=== PATIENT | male | born 1955 | race Caucasian/White ===

== ENCOUNTER → 2017-06-30 10:22 | Outpatient (CLI) | payer OTHER, SELFPAY ==
--- NOTE | 2017-06-30 | DI.CT.S_ITS ---
PROCEDURE: CT SINUS SCREEN WO CON INDICATIONS: ACUTE SINUSITIS TECHNIQUE: Noncontrast 3.0 mm axial images acquired from the frontal sinuses to the mid-sella, with coronal and sagittal reformats. For radiation dose reduction, the following was used: automated exposure control, adjustment of mA and/or kV according to patient size. COMPARISON: None. FINDINGS: Image quality: Excellent. Maxillary Sinuses: Bilateral maxillary windowing and partial ethmoidectomy, right greater than left. The right maxillary sinus is clear. There is minimal 5 mm thick mucous membrane thickening in the anterior floor of the left maxillary sinus which is otherwise clear. Ethmoid Air Cells: No bony remodeling or destruction. Sinuses are clear. Sphenoid Sinuses: No bony remodeling or destruction. Sinuses are clear. Frontal Sinuses: No bony remodeling or destruction. Sinuses are clear. Ostiomeatal Complexes: Ostiomeatal complexes are patent. No Angelito cells. Miscellaneous: Visualized intra-orbital contents are normal. Left denice bullosa, no paradoxical turbinate curvature. No nasal septal deviation. There is water attenuation within the mastoid air cells, right greater than left. IMPRESSION: 1. No evidence of acute sinusitis. 2. Minimal chronic mucous membrane thickening anterior floor of the right maxillary sinus. 3. Evidence of previous sinus surgery as described. 4. Left denice bullosa. 5. Possible mastoiditis, right greater than left. Correlate clinically. Dictated by: Milton Molina M.D. on 06/30/2017 at 10:45 Approved by: Milton Molina M.D. on 06/30/2017 at 11:02
== END ==
PROVIDERS: Family Provider Internal Medicine; PCP Internal Medicine; Visit Provider Otolaryngology
DX: J01.90 Acute sinusitis, unspecified (principal); J34.89 Other specified disorders of nose and nasal sinuses
CPT/HCPCS: 70486

== ENCOUNTER → 2017-07-21 08:47 | Outpatient (CLI) | payer OTHER, SELFPAY ==
[2017-07-21 10:05] LABS: Add Manual Diff / Slide Review NO; Basophils Percent Auto 0.7 % (0-2); Eosinophils Percent Auto 1.4 % (2-4); Hematocrit 41.6 % (41-53); Hemoglobin 14.2 g/dL (13.5-17.5); Lymphocytes Percent Auto 18.8 % (25-40); Mean Corpuscular Volume 82.2 fL (80-100); Monocytes Percent Auto 5.6 % (3-14); Neutrophils Absolute Auto 5400 /uL (3000-5900); Neutrophils Percent Auto 73.5 % (50-75); Platelet Count 188 X10^3/uL (150-400); Red Blood Cell Count 5.06 X10^6/uL (4.5-5.9); Red Cell Distribution Width 14.8 % (11.6-14.8); White Blood Cell Count 7.4 X10^3/uL (4.5-11.0)
[2017-07-21 10:18] LABS: Erythrocyte Sedimentation Rate 10 MM/HR (0-15)
[2017-07-21 10:45] LABS: Alanine Aminotransferase 30 IU/L (21-72); Albumin 4.1 g/dL (3.5-5.0); Albumin Globulin Ratio 1.4 (1.0-2.8); Alkaline Phosphatase 68 U/L (38-126); Aspartate Aminotransferase 28 IU/L (17-59); Bilirubin Total 0.6 mg/dL (0.2-1.3); Blood Urea Nitrogen 16 mg/dL (9-20); Calcium 9.3 mg/dL (8.4-10.2); Carbon Dioxide 31 mmol/L (22-32); Chloride 101 mmol/L (98-107); Estimated Glomerular Filt Rate > 60.0 mL/min (>60); Glucose 105 mg/dL (80-110); HEMOLYSIS < 15 (0-50); Potassium 4.1 mmol/L (3.4-5.1); Sodium 142 mmol/L (137-145); Total Protein 7.1 g/dL (6.3-8.2); Uric Acid 5.5 mg/dL (3.5-8.5)
[2017-07-21 10:48] LABS: C-Reactive Protein Quant < 0.5 mg/dL (<1.0)
== END ==
PROVIDERS: PCP Internal Medicine; Visit Provider Specialist/Technologist Athletic Trainer
DX: M12.9 Arthropathy, unspecified (principal)
CPT/HCPCS: 36415; 80053; 84550; 85025; 85651; 86140

== ENCOUNTER → 2017-09-01 07:52 | Outpatient (CLI) | payer OTHER, SELFPAY ==
[2017-09-01 08:42] LABS: Add Manual Diff / Slide Review NO; Basophils Percent Auto 0.9 % (0-2); Eosinophils Percent Auto 1.4 % (2-4); Hematocrit 41.3 % (41-53); Hemoglobin 13.9 g/dL (13.5-17.5); Lymphocytes Percent Auto 37.1 % (25-40); Mean Corpuscular HGB Conc 33.5 % (30-36); Mean Corpuscular Hemoglobin 28.6 PG (26-34); Mean Corpuscular Volume 85.4 fL (80-100); Monocytes Percent Auto 8.2 % (3-14); Neutrophils Absolute Auto 4200 /uL (3000-5900); Neutrophils Percent Auto 52.4 % (50-75); Platelet Count 178 X10^3/uL (150-400); Red Blood Cell Count 4.84 X10^6/uL (4.5-5.9); Red Cell Distribution Width 14.9 % (11.6-14.8); White Blood Cell Count 7.9 X10^3/uL (4.5-11.0)
[2017-09-01 09:02] LABS: Erythrocyte Sedimentation Rate 6 MM/HR (0-15)
[2017-09-01 09:14] LABS: Alanine Aminotransferase 30 IU/L (21-72); Albumin 3.9 g/dL (3.5-5.0); Albumin Globulin Ratio 1.4 (1.0-2.8); Alkaline Phosphatase 63 U/L (38-126); Aspartate Aminotransferase 28 IU/L (17-59); Bilirubin Total 0.6 mg/dL (0.2-1.3); Blood Urea Nitrogen 18 mg/dL (9-20); C-Reactive Protein Quant < 0.5 mg/dL (<1.0); Calcium 9.2 mg/dL (8.4-10.2); Carbon Dioxide 32 mmol/L (22-32); Chloride 105 mmol/L (98-107); Cholesterol 146 mg/dL (140-199); Estimated Glomerular Filt Rate > 60.0 mL/min (>60); Globulin 2.7 g/dL (1.7-4.1); Glucose 90 mg/dL (80-110); HDL Cholesterol 50 mg/dL (40-60); HEMOLYSIS < 15 (0-50); LDL Cholesterol Calculated 63 mg/dL (<100); Potassium 4.1 mmol/L (3.4-5.1); Sodium 143 mmol/L (137-145); Total Protein 6.6 g/dL (6.3-8.2); Triglycerides 165 mg/dL (35-150)
== END ==
PROVIDERS: PCP Internal Medicine; Visit Provider Specialist/Technologist Athletic Trainer
DX: M1A.09X0 Idiopathic chronic gout, multiple sites, without tophus (tophi) (principal); E78.5 Hyperlipidemia, unspecified
CPT/HCPCS: 36415; 80053; 80061; 84550; 85025; 85651; 86140

== ENCOUNTER → 2017-11-21 11:37 | Outpatient (CLI) | payer OTHER, SELFPAY ==
--- NOTE | 2017-11-21 11:39 | DI.RAD.S_ITS ---
PROCEDURE: XR CHEST 2V INDICATIONS: dyspnea TECHNIQUE: 2 views of the chest were acquired. COMPARISON: [facility], , CHEST 2 VIEW, 06/18/2012, 12:28. FINDINGS: Surgical changes and devices: None. Lungs and pleura: No pleural effusions or pneumothorax. Lungs are clear. Mediastinum: Mediastinal contours are normal. Heart size is normal. Bones and chest wall: No suspicious bony abnormalities. Soft tissues appear unremarkable. IMPRESSION: No acute cardiopulmonary pathology. Dictated by: Eddie Monte M.D. on 11/21/2017 at 12:32 Approved by: Eddie Monte M.D. on 11/21/2017 at 12:33
== END ==
PROVIDERS: Family Provider Internal Medicine; PCP Internal Medicine; Visit Provider Internal Medicine
DX: R06.00 Dyspnea, unspecified (principal)
CPT/HCPCS: 71046

== ENCOUNTER → 2017-12-09 11:33 | Outpatient (CLI) | payer OTHER, SELFPAY ==
--- NOTE | 2017-12-12 15:51 | PM.PFT.1 ---
Pulmonary Function Test Referral & Results Date Patient Seen: 12/09/17 Requesting provider: Ramesh Grande Indication: Dyspnea Results: The spirometry demonstrates an FVC of 4.24 L which is 98% of predicted. The FEV1 was measured at 3.64 L which is 112% of predicted. The FEV1/FVC ratio was 86 which is 114% of predicted. Following the administration of bronchodilator there was no appreciable change in above normal numbers. Lung volumes show an SVC of 3.77 L which is 85% of predicted. The diffusing capacity was measured at 27.8 for which is 93% of predicted. The maximum voluntary ventilation was normal Interpretation: This study demonstrates normal pulmonary function
== END ==
PROVIDERS: Family Provider Internal Medicine; PCP Internal Medicine; Visit Provider Internal Medicine
DX: R06.09 Other forms of dyspnea (principal)
CPT/HCPCS: 94010; 94060; 94726; 94729

== ENCOUNTER → 2018-10-20 07:58 | Outpatient (CLI) | payer OTHER, SELFPAY ==
[2018-10-20 09:06] LABS: Alanine Aminotransferase 15 IU/L (21-72); Albumin Globulin Ratio 1.3 (1.0-2.8); Alkaline Phosphatase 99 U/L (38-126); Aspartate Aminotransferase 24 IU/L (17-59); Bilirubin Total 0.4 mg/dL (0.2-1.3); Blood Urea Nitrogen 18 mg/dL (9-20); Calcium 9.4 mg/dL (8.4-10.2); Carbon Dioxide 31 mmol/L (22-32); Chloride 104 mmol/L (98-107); Cholesterol 251 mg/dL (140-199); Estimated Glomerular Filt Rate > 60.0 mL/min (>60); Globulin 3.2 g/dL (1.7-4.1); Glucose 98 mg/dL (80-110); HDL Cholesterol 40 mg/dL (40-60); HEMOLYSIS < 15 (0-50); LDL Cholesterol Calculated 163 mg/dL (<100); Potassium 4.4 mmol/L (3.4-5.1); Sodium 140 mmol/L (137-145); Total Protein 7.2 g/dL (6.3-8.2); Triglycerides 240 mg/dL (35-150)
== END ==
PROVIDERS: PCP Internal Medicine; Visit Provider Internal Medicine
DX: M10.9 Gout, unspecified (principal); E78.5 Hyperlipidemia, unspecified; I10 Essential (primary) hypertension
CPT/HCPCS: 36415; 80053; 80061; 84550

== ENCOUNTER → 2020-03-03 12:05 | Outpatient (CLI) | payer MEDICARE, OTHER, SELFPAY ==
[2020-03-03 13:07] LABS: Add Manual Diff / Slide Review NO; Basophils Absolute Auto 100 /uL (0-100); Basophils Percent Auto 0.9 % (0-2); Eosinophils Absolute Auto 200 /uL (0-450); Eosinophils Percent Auto 2.8 % (2-4); Hematocrit 41.4 % (41-53); Hemoglobin 13.7 g/dL (13.5-17.5); Lymphocytes Absolute Auto 2200 /uL (1100-4500); Mean Corpuscular Hemoglobin 27.9 PG (26-34); Mean Corpuscular Volume 84.6 fL (80-100); Monocytes Absolute Auto 500 /uL (0-900); Monocytes Percent Auto 7.5 % (3-14); Neutrophils Absolute Auto 4100 /uL (1500-7000); Neutrophils Percent Auto 57.8 % (50-75); Platelet Count 211 X10^3/uL (150-400); Red Cell Distribution Width 14.9 % (11.6-14.8); White Blood Cell Count 7.1 X10^3/uL (4.5-11.0)
[2020-03-03 13:40] LABS: Alanine Aminotransferase 21 IU/L (<50); Albumin Globulin Ratio 1.3 (1.0-2.8); Alkaline Phosphatase 95 U/L (38-126); Aspartate Aminotransferase 33 IU/L (17-59); BUN Creatinine Ratio 17.4 (6-22); Bilirubin Total 0.3 mg/dL (0.2-1.3); Blood Urea Nitrogen 16 mg/dL (9-20); Calcium 9.1 mg/dL (8.4-10.2); Carbon Dioxide 31 mmol/L (22-32); Chloride 104 mmol/L (98-107); Estimated Glomerular Filt Rate > 60.0 mL/min (>60); Globulin 3.2 g/dL (1.7-4.1); Glucose 110 mg/dL (80-110); HEMOLYSIS < 15 (0-50); Potassium 4.8 mmol/L (3.4-5.1); Sodium 139 mmol/L (137-145); Total Protein 7.2 g/dL (6.3-8.2); Uric Acid 4.6 mg/dL (3.5-8.5)
[2020-03-03 14:09] LABS: Prostate Specific Antigen Scrn 0.782 ng/mL (0.1-4.0)
== END ==
PROVIDERS: PCP Internal Medicine; Referring Provider Internal Medicine; Visit Provider Internal Medicine
DX: E78.5 Hyperlipidemia, unspecified (principal); Z12.5 Encounter for screening for malignant neoplasm of prostate; E79.0 Hyperuricemia without signs of inflammatory arthritis and tophaceous disease; I10 Essential (primary) hypertension; M10.9 Gout, unspecified
CPT/HCPCS: 36415; 80053; 84550; 85025; G0103

== ENCOUNTER → 2020-03-14 07:47 | Outpatient (CLI) | payer MEDICARE, OTHER, SELFPAY ==
[2020-03-14] MEDS: COVID-19 VACC #1, MRNA(MOD) 100 MCG/0.5 ML VIAL IM (07:54)
== END ==
PROVIDERS: PCP Internal Medicine; Visit Provider Internal Medicine
DX: Z23 Encounter for immunization (principal)
CPT/HCPCS: 0011A; 91301

== ENCOUNTER → 2020-04-11 07:50 | Outpatient (CLI) | payer MEDICARE, OTHER, SELFPAY ==
[2020-04-11] MEDS: COVID-19 VACC #2, MRNA(MOD) 100 MCG/0.5 ML VIAL IM (08:05)
== END ==
PROVIDERS: PCP Internal Medicine; Visit Provider Internal Medicine
DX: Z23 Encounter for immunization (principal)
CPT/HCPCS: 0012A; 91301

== ENCOUNTER → 2020-11-14 15:17 | Outpatient (CLI) | payer MEDICARE, OTHER, SELFPAY ==
[2020-11-14 17:29] LABS: Alanine Aminotransferase 19 IU/L (<50); Albumin Globulin Ratio 1.3 (1.0-2.8); Alkaline Phosphatase 98 U/L (38-126); Aspartate Aminotransferase 29 IU/L (17-59); BUN Creatinine Ratio 20.2 (6-22); Bilirubin Total 0.3 mg/dL (0.2-1.3); Blood Urea Nitrogen 18 mg/dL (9-20); Carbon Dioxide 31 mmol/L (22-32); Chloride 104 mmol/L (98-107); Estimated Glomerular Filt Rate > 60.0 mL/min (>60); Glucose 107 mg/dL (80-110); HEMOLYSIS < 15 (0-50); Sodium 140 mmol/L (137-145); Uric Acid 4.7 mg/dL (3.5-8.5)
== END ==
PROVIDERS: PCP Internal Medicine; Referring Provider Physician Assistant Medical; Visit Provider Physician Assistant Medical
DX: M1A.09X0 Idiopathic chronic gout, multiple sites, without tophus (tophi) (principal)
CPT/HCPCS: 36415; 80053; 84550

== ENCOUNTER → 2021-03-09 08:26 | Outpatient (CLI) | payer MEDICARE, OTHER, SELFPAY ==
[2021-03-09 09:31] LABS: Add Manual Diff / Slide Review NO; Basophils Absolute Auto 100 /uL (0-100); Basophils Percent Auto 0.8 % (0-2); Eosinophils Absolute Auto 200 /uL (0-450); Eosinophils Percent Auto 2.6 % (2-4); Hematocrit 40.9 % (41-53); Hemoglobin 13.8 g/dL (13.5-17.5); Lymphocytes Absolute Auto 2100 /uL (1100-4500); Lymphocytes Percent Auto 31.4 % (25-40); Mean Corpuscular HGB Conc 33.7 % (30-36); Mean Corpuscular Hemoglobin 28.1 PG (26-34); Mean Corpuscular Volume 83.3 fL (80-100); Monocytes Absolute Auto 500 /uL (0-900); Monocytes Percent Auto 7.6 % (3-14); Neutrophils Absolute Auto 3900 /uL (1500-7000); Neutrophils Percent Auto 57.6 % (50-75); Platelet Count 203 X10^3/uL (150-400); Red Blood Cell Count 4.91 X10^6/uL (4.5-5.9); Red Cell Distribution Width 14.3 % (11.6-14.8); White Blood Cell Count 6.7 X10^3/uL (4.5-11.0)
[2021-03-09 10:12] LABS: Alanine Aminotransferase 19 IU/L (<50); Albumin Globulin Ratio 1.4 (1.0-2.8); Alkaline Phosphatase 87 U/L (38-126); Aspartate Aminotransferase 29 IU/L (17-59); BUN Creatinine Ratio 16.3 (6-22); Bilirubin Total 0.4 mg/dL (0.2-1.3); Blood Urea Nitrogen 15 mg/dL (9-20); Calcium 9.1 mg/dL (8.4-10.2); Carbon Dioxide 30 mmol/L (22-32); Chloride 105 mmol/L (98-107); Cholesterol 256 mg/dL (140-199); Estimated Glomerular Filt Rate > 60.0 mL/min (>60); Globulin 2.8 g/dL (1.7-4.1); Glucose 104 mg/dL (80-110); HDL Cholesterol 41 mg/dL (40-60); HEMOLYSIS < 15 (0-50); LDL Cholesterol Calculated 173 mg/dL (<100); Potassium 4.4 mmol/L (3.4-5.1); Sodium 140 mmol/L (137-145); Total Protein 6.8 g/dL (6.3-8.2); Triglycerides 211 mg/dL (35-150); Uric Acid 5.1 mg/dL (3.5-8.5)
[2021-03-09 10:33] LABS: Prostate Specific Antigen Scrn 0.629 ng/mL (0.1-4.0)
== END ==
PROVIDERS: PCP Internal Medicine; Referring Provider Internal Medicine; Visit Provider Internal Medicine
DX: E78.2 Mixed hyperlipidemia (principal); Z12.5 Encounter for screening for malignant neoplasm of prostate; C84.A0 Cutaneous T-cell lymphoma, unspecified, unspecified site; E79.0 Hyperuricemia without signs of inflammatory arthritis and tophaceous disease; I10 Essential (primary) hypertension
CPT/HCPCS: 36415; 80053; 80061; 84550; 85025; G0103

== ENCOUNTER → 2021-10-08 07:15 | Outpatient (CLI) | payer MEDICARE, OTHER, SELFPAY ==
[2021-10-08 09:05] LABS: Alanine Aminotransferase 17 IU/L (<50); Albumin 3.8 g/dL (3.5-5.0); Albumin Globulin Ratio 1.2 (1.0-2.8); Alkaline Phosphatase 89 U/L (38-126); Aspartate Aminotransferase 25 IU/L (17-59); BUN Creatinine Ratio 15.3 (6-22); Bilirubin Total 0.5 mg/dL (0.2-1.3); Blood Urea Nitrogen 15 mg/dL (9-20); Calcium 8.9 mg/dL (8.4-10.2); Carbon Dioxide 29 mmol/L (22-32); Chloride 106 mmol/L (98-107); Estimated Glomerular Filt Rate > 60 mL/min (>60); Globulin 3.1 g/dL (1.7-4.1); Glucose 97 mg/dL (80-110); HEMOLYSIS < 15 (0-50); Potassium 4.3 mmol/L (3.4-5.1); Sodium 140 mmol/L (137-145); Total Protein 6.9 g/dL (6.3-8.2)
== END ==
PROVIDERS: PCP Internal Medicine; Referring Provider Internal Medicine; Visit Provider Internal Medicine
DX: I10 Essential (primary) hypertension (principal)
CPT/HCPCS: 36415; 80053

== ENCOUNTER 2022-12-17 13:39 | Emergency (ER) | payer MEDICARE, OTHER, SELFPAY ==
[2022-12-17] VITALS (7 sets, daily range): BP systolic 160–198; BP diastolic 72–87; PULSE 55–71; RESP 16–24; TEMP 36.6; O2SAT 98–99; BMI 39.9
--- NOTE | 2022-12-17 13:59 | DI.CT.S_ITS ---
PROCEDURE: CT STROKE INDICATIONS: Positive BE-FAST, Stroke symptoms TECHNIQUE: Noncontrast 4.5 mm thick angled axial sections acquired from the foramen magnum to the vertex, with coronal reformats. For radiation dose reduction, the following was used: automated exposure control, adjustment of mA and/or kV according to patient size. COMPARISON: None. FINDINGS: Image quality: Excellent. CSF spaces: Basal cisterns are patent. No extra-axial fluid collections. Ventricles are normal in size and shape. Brain: No midline shift. No intracranial masses or hemorrhage. Mild age-related global volume loss. Bills-white matter interface is normal. Skull and face: Calvarium and visualized facial bones are intact, without suspicious lesions. Sinuses: Visualized sinuses and mastoids are clear. IMPRESSION: No acute intracranial abnormalities. This study fulfills neurological imaging criteria for inclusion or exclusion of acute stroke therapies based on available published neurological imaging guidelines. Dictated by: Matteo Cheng M.D. on 12/17/2022 at 14:35 Approved by: Matteo Cheng M.D. on 12/17/2022 at 14:36
--- NOTE | 2022-12-17 13:59 | DI.RAD.S_ITS ---
PROCEDURE: XR CHEST 1V INDICATIONS: Possible stroke TECHNIQUE: One view of the chest was acquired. COMPARISON: [facility], , XR CHEST 2V, 11/21/2017, 11:42. [facility], , CHEST 2 VIEW, 06/18/2012, 12:28. FINDINGS: Surgical changes and devices: None. Lungs and pleura: Lungs are clear. No pleural effusions or pneumothorax. Mediastinum: Mediastinal contours appear normal. Heart size is normal. Bones and chest wall: No suspicious bony lesions. Overlying soft tissues appear unremarkable. IMPRESSION: No acute cardiopulmonary process. Dictated by: Matteo Cheng M.D. on 12/17/2022 at 14:47 Approved by: Matteo Cheng M.D. on 12/17/2022 at 14:48
--- NOTE | 2022-12-17 14:09 | DI.CT.S_ITS ---
PROCEDURE: CT ANGIO HEAD AND NECK INDICATIONS: STROKE SYMPTOMS TECHNIQUE: After the administration of intravenous contrast, 1 mm thick sections acquired from the aortic arch through the [place] of [place]. 3-dimensional cpczqxw-mrcpyyfpx-atoapmzwtv (MIP) and/or volume rendering reformats were acquired of the central intracranial vasculature and neck separately. For radiation dose reduction, the following was used: automated exposure control, adjustment of mA and/or kV according to patient size. COMPARISON: None. FINDINGS: Image quality: Diagnostic. BRAIN: See separately dictated CT of the head. HEAD CT ANGIOGRAPHY: Anterior circulation: Intracranial internal carotid arteries are normal in size and flow. Mild atherosclerosis. The flow within the paired anterior cerebral arteries is normal and symmetric. Mild narrowing of the right M1 segment. The remainder of the right MCA is patent and normal in caliber. Left MCA is patent and normal in caliber.. The anterior communicating artery is seen. No aneurysms are seen. Posterior circulation: Visualized portions of the vertebral arteries demonstrate normal caliber, and join to form a normal appearing basilar artery. origin of the right RUBBER TIRE CURER. Flow within the posterior cerebral arteries is normal and symmetric. No aneurysms are seen. NECK CT ANGIOGRAPHY: Carotid system: The great vessels demonstrate a conventional anatomy as they arise from the aortic arch. Mild atherosclerosis. The origins of the common carotid arteries appear patent. Mild narrowing of the distal right common carotid artery. The common carotid arteries otherwise demonstrate normal caliber and courses. Atherosclerosis of the bilateral carotid bulbs with severe narrowing of the left carotid bulb, greater than 70% by NASCET criteria. Mild narrowing of the right proximal ICA, less than 50%. Mild tortuosity of the extracranial internal carotid arteries. Posterior circulation: The origins of the vertebral arteries both appear widely patent. The more superior extracranial portions of both vertebral arteries also demonstrate normal courses and calibers. They join to form a normal appearing basilar artery. Soft tissues: Visualized neck soft tissues demonstrate no suspicious abnormalities. Bones: No suspicious bony lesions. Visualized cervical spine appears normally aligned. IMPRESSION: 1. Atherosclerotic vascular calcifications are seen throughout. There is mild narrowing of the right M1 segment. Otherwise, the intracranial arteries are patent and normal in caliber. No hemodynamically significant stenosis intracranially. 2. Atherosclerosis of the bilateral carotid bulbs with greater than 70% stenosis of the proximal left ICA. Less than 50% stenosis of the right proximal ICA. Any quantitative measurements of stenosis were performed using NASCET criteria. Dictated by: Matteo Cheng M.D. on 12/17/2022 at 14:36 Approved by: Matteo Cheng M.D. on 12/17/2022 at 14:47
[2022-12-17 15:03] LABS: PTT Partial Thromboplastin Tim 26 SECONDS (26-36)
[2022-12-17 15:06] LABS: Add Manual Diff / Slide Review NO; Basophils Absolute Auto 100 /uL (0-100); Basophils Percent Auto 0.8 % (0-2); Eosinophils Absolute Auto 300 /uL (0-450); Eosinophils Percent Auto 3.6 % (2-4); Hematocrit 38.6 % (41-53); Hemoglobin 12.8 g/dL (13.5-17.5); Lymphocytes Absolute Auto 2300 /uL (1100-4500); Mean Corpuscular HGB Conc 33.1 % (30-36); Mean Corpuscular Volume 84.7 fL (80-100); Monocytes Absolute Auto 600 /uL (0-900); Monocytes Percent Auto 7.8 % (3-14); Neutrophils Absolute Auto 4000 /uL (1500-7000); Neutrophils Percent Auto 55.8 % (50-75); Platelet Count 219 X10^3/uL (150-400); Red Blood Cell Count 4.56 X10^6/uL (4.5-5.9); Red Cell Distribution Width 15.3 % (11.6-14.8); White Blood Cell Count 7.2 X10^3/uL (4.5-11.0)
[2022-12-17 15:14] LABS: Alanine Aminotransferase 19 IU/L (<50); Albumin 3.9 g/dL (3.5-5.0); Albumin Globulin Ratio 1.2 (1.0-2.8); Alkaline Phosphatase 72 U/L (38-126); Aspartate Aminotransferase 33 IU/L (17-59); BUN Creatinine Ratio 19.1 (6-22); Bilirubin Total 0.4 mg/dL (0.2-1.3); Blood Urea Nitrogen 17 mg/dL (9-20); Calcium 9.2 mg/dL (8.4-10.2); Carbon Dioxide 27 mmol/L (22-32); Chloride 107 mmol/L (98-107); Creatine Kinase 225 U/L (55-170); Estimated Glomerular Filt Rate > 60 mL/min (>60); Globulin 3.3 g/dL (1.7-4.1); Glucose 107 mg/dL (80-110); HEMOLYSIS 39 (0-50); Magnesium 2.2 mg/dL (1.6-2.3); Potassium 4.4 mmol/L (3.4-5.1); Sodium 140 mmol/L (137-145); Total Protein 7.2 g/dL (6.3-8.2)
[2022-12-17 15:25] LABS: Troponin I < 0.012 ng/mL (0.01-0.034)
--- NOTE | 2022-12-17 15:31 | PC.NURSE ---
Pt roomed at 1530.
--- NOTE | 2022-12-17 15:36 | ED_ITS ---
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 Patient reports 3 total incidents since 1 week ago where a curtain will fall over his left eye. He will have vision loss for approximately 30 seconds that is subsequently resolved. Patient states that he had a comprehensive dilated eye exam at his contemporary or modern dancer's office today, however no abnormality was found and he was referred to the emergency department for evaluation of TIA versus ophthalmic migraines. Patient denies complaints at this time. Denies numbness, weakness, headaches, difficulty speaking. On Anticoagulants: No Related Data Home Medications Medication Instructions Recorded Confirmed prednisolone acetate 1 % eye ophthalmic (eye) 07/15/17 12/10/21 drops,suspension cetirizine 10 mg tablet (Aller-Sunshine) 10 mg PO DAILY 08/29/17 12/10/21 colchicine (gout) 0.6 mg tablet 0.6 mg PO .PRN 07/07/18 12/10/21 Respironics Dreamstation CPAP #1 ea 10/26/18 12/10/21 triamcinolone acetonide 0.1 % 1 applic topical DAILY PRN #0 grams 10/08/21 12/10/21 topical cream Previous Rx's Medication Instructions Recorded allopurinol 100 mg tablet 100 mg PO DAILY #90 tabs 02/29/20 amlodipine 10 mg tablet 10 mg PO DAILY #90 tabs 12/10/21 valsartan 320 mg tablet 320 mg PO DAILY #90 tabs 04/03/22 nirmatrelvir 300 mg (150 mg See Rx Instructions PO .COMPLEX 11/02/22 x2)-ritonavir 100 mg tablet,dose #30 ea pack (Paxlovid) Allergies Allergy/AdvReac Type Severity Reaction Status Date / Time benazepril AdvReac Intermediate COUGH Verified 12/10/21 09:56 atorvastatin AdvReac Unknown MUSCLE Verified 12/10/21 09:56 CRAMPS rosuvastatin [From Crestor] AdvReac severe Verified 12/10/21 09:56 muscle pain simvastatin AdvReac muscle Verified 12/10/21 09:56 aches Review of Systems Review of Systems Narrative: CONSTITUTIONAL- Denies: fever, chills, fatigue HEENT-reports: Left eye vision changes (none currently) Denies: sore throat, nosebleed RESPIRATORY- Denies: shortness of breath, cough, wheezing CARDIAC- Denies: chest pain, edema, orthopnea GI- Denies: abdominal pain, nausea, vomiting, constipation, diarrhea - Denies: frequency, dysuria, hematuria, flank pain MSK- Denies: extremity pain, extremity swelling, joint pain, joint swelling SKIN- Denies: rash, itching, burn, swelling NEUROLOGICAL- Denies: headache, numbness, weakness, dizziness PSYCHIATRIC- Denies: anxiety, depression, suicidal ideation, homicidal ideation Hematologic/Lymphatic On Anticoagulants: No Patient History Medical History (Updated 12/17/22 @ 17:29 by Lizbeth Villafana MD) Nocturnal hypoxemia Obstructive sleep apnea (~2003) Idiopathic hypersomnia with long sleep time (~2003) Diffuse idiopathic skeletal hyperostosis Cutaneous T-cell lymphoma Gout (~2017) Pneumonia Peripheral neuropathy Foot pain (~2009) Eczema (~2011) Elevated uric acid in blood (02/04/17) Ankylosing vertebral hyperostosis (03/15/16) Asthma Hypertension Hyperlipidemia (02/26/11) Surgical History Anesthesia Inguinal hernia (~2004) Family History Brother Age: 64 Family history of alcoholism Heart disease Father Fam hx-ischem heart disease Family history of alcoholism Heart disease Stroke Grandfather Heart disease Grandmother Mental health problem Mother Age: 94 Dementia Grandfather Fam hx-ischem heart disease Family history of alcoholism Heart disease Stroke Social History marital status: number of children: 2 household members: spouse lives independently: Yes caregiver/support person: No housing: house pets and animals: Yes education level: other occupational status: other 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 parul/yazdanism: None travel history: over 6 months ago leisure activities: other Smoking Status: Never smoker Tobacco: How many years used: 0 quit status: quit date established second hand exposure: Yes (Younger years) alcohol intake: current substance use type: does not use Smoking Status: Never smoker alcohol intake frequency: a few times a week Substance Use Type: does not use Exam Initial Vital Signs Initial Vital Signs: Vital Signs Temperature 97.8 F 12/17/22 13:43 Pulse Rate 65 12/17/22 13:43 Respiratory Rate 18 12/17/22 13:43 Blood Pressure 166/72 H 12/17/22 13:43 Pulse Oximetry 98 12/17/22 13:43 Oxygen Delivery Method Room Air 12/17/22 13:43 Const: Awake, alert, no acute distress, nontoxic appearing, obese Eyes: PERRL, EOMI, conjunctiva normal ENT: Atraumatic, dentition normal, mucous membranes moist Cardiac: regular rate, regular rhythm RESP: unlabored, clear bilaterally, no wheezing GI: Atraumatic, soft, nontender, nondistended, no rebound, no guarding MSK: Atraumatic, full range of motion, pulses equal Skin: Warm, Dry, intact, no rashes Neuro: AO x3, CN II-XII grossly intact, moves all extremities Psych: affect normal, mood normal, not suicidal, not homicidal Course Course Course Narrative: Well-appearing patient with 3 episodes of transient vision loss in his left eye. Patient currently has NIH of 0, no vision changes. We will order CT noncontrast of the head and CTA head and neck. Orders Ordered: Discontinued Medications Ondansetron HCl (Ondansetron 4 Mg/2 Ml Inj) 4 mg IV NOW PRN PRN Reason: Nausea And Vomiting Ondansetron HCl (Ondansetron 4 Mg Odt) 4 mg SL NOW PRN PRN Reason: Nausea And Vomiting Reevaluation(s) Reevaluation #1: Laboratory work is reviewed, unremarkable. CT imaging shows no acute infarcts. Incidental finding of 70% stenosis in the left ICA noted. 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 No evidence of acute hemorrhage. Patient was informed of all lab and imaging results including his CTA results as well as his MRI results. Given negative MRI as well as normal ocular exam and Ophthalmology this is likely an ocular migraine. Patient was counseled to follow up with primary care physician for the cavernoma as well as the stenosis findings for further recommendations. ED return precautions discussed at bedside. Patient expressed understanding of the plan and is in agreement at this time. All questions answered at the time of discharge. Vital Signs Vital signs: Vital Signs - 8 hr 12/17/22 13:43 12/17/22 15:26 12/17/22 15:29 Temperature 97.8 F Pulse Rate 65 71 Respiratory Rate 18 24 Blood Pressure 166/72 H 198/87 H Pulse Oximetry 98 Oxygen Delivery Method Room Air 12/17/22 15:29 12/17/22 15:30 12/17/22 15:30 Temperature Pulse Rate 60 57 L Respiratory Rate 18 19 Blood Pressure 189/84 H Pulse Oximetry 99 98 Oxygen Delivery Method 12/17/22 15:46 12/17/22 15:46 12/17/22 16:00 Temperature Pulse Rate 55 L Respiratory Rate 16 Blood Pressure 168/76 H 169/79 H Pulse Oximetry 98 Oxygen Delivery Method 12/17/22 16:00 12/17/22 17:00 Temperature Pulse Rate 55 L 56 L Respiratory Rate 17 18 Blood Pressure 160/75 H Pulse Oximetry 98 98 Oxygen Delivery Method Room Air MDM - Neuro Symptoms/Deficit Differential Diagnosis Differential diagnosis: Likely convulsions, subarachnoid hemorrhage and cerebrovascular accident Lab Data 12/17/22 14:14 12/17/22 14:14 Labs: Lab Results 12/17/22 12/17/22 Range/Units 14:14 17:12 WBC 7.2 (4.5-11.0) X10^3/uL RBC 4.56 (4.5-5.9) X10^6/uL Hgb 12.8 L (13.5-17.5) g/dL Hct 38.6 L (41-53) % MCV 84.7 (80-100) fL MCH 28.0 (26-34) PG MCHC 33.1 (30-36) % RDW 15.3 H (11.6-14.8) % Plt Count 219 (150-400) X10^3/uL Neut % (Auto) 55.8 (50-75) % Lymph % (Auto) 32.0 (25-40) % [place] % (Auto) 7.8 (3-14) % Eos % (Auto) 3.6 (2-4) % Baso % (Auto) 0.8 (0-2) % Neut # (Auto) 4000 (1963-6676) /uL Lymph # (Auto) 2300 (9119-9735) /uL [place] # (Auto) 600 (0-900) /uL Eos # (Auto) 300 (0-450) /uL Baso # (Auto) 100 (0-100) /uL PT 12.0 (10.1-12.7) SECONDS INR 1.0 (0.9-1.3) APTT 26 (26-36) SECONDS Sodium 140 (137-145) mmol/L Potassium 4.4 (3.4-5.1) mmol/L Chloride 107 (98-107) mmol/L Carbon Dioxide 27 (22-32) mmol/L BUN 17 (9-20) mg/dL Creatinine 0.89 (0.66-1.25) mg/dL Estimated GFR > 60 (>60) mL/min BUN/Creatinine Ratio 19.1 (6-22) Glucose 107 (80-110) mg/dL Calcium 9.2 (8.4-10.2) mg/dL Magnesium 2.2 (1.6-2.3) mg/dL Total Bilirubin 0.4 (0.2-1.3) mg/dL AST 33 (17-59) IU/L ALT 19 (<50) IU/L Alkaline Phosphatase 72 (38-126) U/L Total Creatine Kinase 225 H (55-170) U/L Troponin I < 0.012 (0.01-0.034) ng/mL Total Protein 7.2 (6.3-8.2) g/dL Albumin 3.9 (3.5-5.0) g/dL Globulin 3.3 (1.7-4.1) g/dL Albumin/Globulin Ratio 1.2 (1.0-2.8) U Opiates 300ng/mL cut Negative (Negative) Ur Oxycodone Screen Negative (Negative) Urine Methadone Screen Negative (Negative) Ur Barbiturates Screen Negative (Negative) U Tricyclic Antidepress Negative (Negative) Ur Phencyclidine Scrn Negative (Negative) Ur Amphetamines Screen Negative (Negative) U Methamphetamines Scrn Negative (Negative) Ur MDMA Scrn (Ecstasy) Negative (Negative) U Benzodiazepines Scrn Negative (Negative) Urine Cocaine Screen Negative (Negative) U Marijuana (THC) Screen Negative (Negative) Point of Care Testing Glucose POC 107 Urine Dip Bedside Urine Glucose Negative Bedside Urine Bilirubin - Negative Bedside Urine Ketone - Negative Urine Specific [place] 1.010 Bedside Urine Occult Blood - Negative Bedside Urine pH 6.5 Bedside Urine Protein - Negative Bedside Urine Urobilinogen - Negative Bedside Urine Nitrite - Negative Bedside Urine Leukocytes - Negative Esterase Discharge Plan Departure Patient Disposition: Home Clinical Impression: Transient vision disturbance, Abnormal brain MRI Instructions: DI for Migraine Activity Restrictions/Additional Instructions: Your MRI today is as follows I would discuss the results with your primary care physician about further management. There was no obvious cause for your brief vision loss. Without a sign of stroke these are likely ocular migraines: PROCEDURE: MR HEAD/BRAIN WO CON INDICATIONS: L transient vision loss TECHNIQUE: Noncontrast axial T1 spin echo, axial T2 fast spin echo, sagittal and axial FLAIR, coronal T2 fast spin echo, axial gradient echo, axial diffusion and ADC through the brain. COMPARISON: None. FINDINGS: Image quality: Excellent. CSF Spaces: Basal cisterns are patent. No extra-axial fluid collections. Ventricles are normal in size and shape. Brain: No intracranial masses or acute hemorrhage. There is a 5 mm focus of low gradient echo signal intensity within the subcortical white matter of the left posterolateral frontal lobe. Mild diffuse cerebral volume loss is present. Bills/white matter interface is normal. Brainstem appears normal. Diffusion-weighted images demonstrate no acute ischemic insult. No chronic ischemic insults. Normal intravascular flow voids are present. Skull and face: Calvarium has normal marrow signal. Orbits appear normal. Sinuses: Sinuses are clear. Small amount of bilateral mastoid fluid is present. IMPRESSION: 1. No acute process. No recent infarct. 2. Mild cerebral volume loss. 3. Small focus of low gradient echo signal intensity within the left frontal lobe, possibly indicating a cavernoma with a small amount of surrounding chronic hemorrhagic products. No evidence of acute intracranial hemorrhage. 4. Bilateral mastoid fluid. Prescriptions: No Action Paxlovid 300 mg (150 mg x 2)-100 mg tablets,dose pack See Rx Instructions PO .COMPLEX Qty: 30 0RF Rx Instructions: take TWO 150 mg tablets of nirmatrelvir with ONE 100 mg tablet of ritonavir twice daily for 5 days PO triamcinolone acetonide 0.1 % cream 1 applic Topical DAILY PRNQty: 0 valsartan 320 mg tablet 320 mg PO DAILY Qty: 90 2RF prednisolone acetate 1 % drops,suspension ophthalmic (eye) colchicine (gout) 0.6 mg tablet 0.6 mg PO .PRN cetirizine [Aller-Sunshine] 10 mg tablet 10 mg PO DAILY allopurinol 100 mg tablet 100 mg PO DAILY Qty: 90 3RF amlodipine 10 mg tablet 10 mg PO DAILY Qty: 90 3RF (DME) Respironics Dreamstation CPAP Qty: 1 Patient Comments: Pressure: 7-12 cmH2O DME: [facility] Rx Instructions: As directed Referrals: Ramesh Grande MD [Primary Care Provider] - Stand Alone Forms: Patient Portal/API
--- NOTE | 2022-12-17 15:41 | DI.MRI.S_ITS ---
PROCEDURE: MR HEAD/BRAIN WO CON INDICATIONS: L transient vision loss TECHNIQUE: Noncontrast axial T1 spin echo, axial T2 fast spin echo, sagittal and axial FLAIR, coronal T2 fast spin echo, axial gradient echo, axial diffusion and ADC through the brain. COMPARISON: None. FINDINGS: Image quality: Excellent. CSF Spaces: Basal cisterns are patent. No extra-axial fluid collections. Ventricles are normal in size and shape. Brain: No intracranial masses or acute hemorrhage. There is a 5 mm focus of low gradient echo signal intensity within the subcortical white matter of the left posterolateral frontal lobe. Mild diffuse cerebral volume loss is present. Bills/white matter interface is normal. Brainstem appears normal. Diffusion-weighted images demonstrate no acute ischemic insult. No chronic ischemic insults. Normal intravascular flow voids are present. Skull and face: Calvarium has normal marrow signal. Orbits appear normal. Sinuses: Sinuses are clear. Small amount of bilateral mastoid fluid is present. IMPRESSION: 1. No acute process. No recent infarct. 2. Mild cerebral volume loss. 3. Small focus of low gradient echo signal intensity within the left frontal lobe, possibly indicating a cavernoma with a small amount of surrounding chronic hemorrhagic products. No evidence of acute intracranial hemorrhage. 4. Bilateral mastoid fluid. Dictated by: Chiquita Castillo M.D. on 12/17/2022 at 16:42 Approved by: Chiquita Castillo M.D. on 12/17/2022 at 16:43
[2022-12-17 18:19] LABS: UR Morphine/Opiate cutoff 300 Negative (Negative); Ur Specific Gravity Normal (Normal); Urine Amphetamines Negative (Negative); Urine Barbiturates Negative (Negative); Urine Benzodiazepines Negative (Negative); Urine Cocaine Negative (Negative); Urine MDMA Negative (Negative); Urine Methadone Negative (Negative); Urine Methamphetamines Negative (Negative); Urine Oxycodone Negative (Negative); Urine Phencyclidine Negative (Negative); Urine Tetrahydrocannabinol Negative (Negative); Urine Tricyclic Antidepressant Negative (Negative); Urine pH Normal (Normal)
[2022-12-17 18:53] LABS: Ur Creatinine Normal (Normal)
== END 2022-12-17 17:51 | disposition home or self-care (01) ==
PROVIDERS: Emergency Provider Emergency Medicine; PCP Internal Medicine
DX: H53.9 Unspecified visual disturbance (principal); R90.89 Other abnormal findings on diagnostic imaging of central nervous system
CPT/HCPCS: 36415; 70450; 70496; 70498; 70551; 71045; 80053; 80305; 81003; 82550; 82962; 83735; 84484; 85025; 85610; 85730; 93005; 99284

== ENCOUNTER → 2024-01-14 11:34 | Outpatient (CLI) | payer MEDICARE, OTHER, SELFPAY ==
[2024-01-14 12:28] LABS: Adenovirus Not Detected (Not Detect); B. parapertussis Not Detected (Not Detecte); Bordetella pertussis Not Detected (Not Detect); Chlamydophila pneumoniae Not Detected (Not Detect); Coronavirus 229E Not Detected (Not Detect); Coronavirus HKU1 Not Detected (Not Detect); Coronavirus NL 63 Not Detected (Not Detect); Coronavirus OC43 Not Detected (Not Detect); Human Metapneumovirus Not Detected (Not Detect); Human Rhinovirus/Enterovirus Detected (Not Detect); Influenza A Not Detected (Not Detect); Influenza B Not Detected (Not Detect); Mycoplasma pneumoniae Not Detected (Not Detect); Parainfluenza Virus 1 Not Detected (Not Detect); Parainfluenza Virus 2 Not Detected (Not Detect); Parainfluenza Virus 3 Not Detected (Not Detect); Parainfluenza Virus 4 Not Detected (Not Detect); Respiratory Syncytial Virus Not Detected (Not Detect); SARS- CoV-2 Not Detected (Not Detecte)
== END ==
PROVIDERS: Family Provider Family Medicine; PCP Family Medicine; Visit Provider Physician Assistant Medical
DX: R05.9 Cough, unspecified (principal)
CPT/HCPCS: 87633

== ENCOUNTER → 2024-02-02 08:02 | Outpatient (CLI) | payer MEDICARE, OTHER, SELFPAY ==
[2024-02-02 09:42] LABS: BUN Creatinine Ratio 16.2 (6-22); Blood Urea Nitrogen 17 mg/dL (9-20); Carbon Dioxide 27 mmol/L (22-32); Estimated Glomerular Filt Rate > 60 mL/min (>60); HEMOLYSIS < 15 (0-50)
[2024-02-02 09:48] LABS: Calcium 9.4 mg/dL (8.4-10.2); Chloride 106 mmol/L (98-107); Glucose 101 mg/dL (80-110); Potassium 4.7 mmol/L (3.4-5.1); Sodium 139 mmol/L (137-145)
== END ==
PROVIDERS: Family Provider Family Medicine; PCP Family Medicine; Referring Provider Internal Medicine; Visit Provider Internal Medicine
DX: I50.30 Unspecified diastolic (congestive) heart failure (principal)
CPT/HCPCS: 36415; 80048